=== PATIENT | female | born 1935 | race Caucasian/White ===

== ENCOUNTER 2020-07-21 04:16 | Day surgery (SDC) | payer OTHER, BC ==
[2020-07-20 11:02] VITALS: BMI 16.2
[~2020-07-21 04:16] MED LIST: TOBRAMYCIN/DEXAMETHASONE OPHTH. OINTMENT 1 TUBE TP ONE
[2020-07-21] MEDS ORDERED: CIPROFLOXACIN HCL 0.3% OPHTH 2.5ML BOTTLE ONE (07:01)
[2020-07-21] MEDS ORDERED: TROPICAMIDE 1% OPHTH SOLN 15 ML BOTTLE ONE (07:02)
[2020-07-21] MEDS ORDERED: TOBRAMYCIN/DEXAMETHASONE OPHTH. OINTMENT 1 TUBE ONE (07:14)
[2020-07-21] MEDS ORDERED: ACETAMINOPHEN 325 MG TABLET (FP) PO PRN (07:14)
[2020-07-21] MEDS ORDERED: LIDOCAINE HCL/PF 1% SDV 5ML VIAL ONE (07:14)
[2020-07-21] MEDS ORDERED: BSS (NA/CA/MG/K) BALANCED SALT SOLUTION OPHTH SOLN 15 ML BOTTLE ONE (07:14)
[2020-07-21] MEDS ORDERED: POVIDONE-IODINE 5% OPHTHALMIC PREP 30 ML SOLUTION ONE (07:14)
[2020-07-21] MEDS: KETOROLAC TROMETHAMINE 0.5% EYE DROP 1 DROP DROPS OP SCH ×2 (07:15→07:45)
[2020-07-21] MEDS ORDERED: CHONDROITIN SU A/HYALUR SOD 1 KIT ONE (07:15)
[2020-07-21] MEDS ORDERED: EPINEPHrine/PF 1 MG/1 ML (1:1,000) AMPULE ONE (07:15)
[2020-07-21] MEDS ORDERED: PHENYLEPHRINE 2.5% OPHTH SOLN 15 ML BOTTLE OP SCH (07:15)
[2020-07-21] MEDS: DICLOFENAC SODIUM 0.1% OPHTHALMIC 2.5ML BOTTLE ONE ×3 (07:15→07:45)
[2020-07-21] MEDS ORDERED: TETRACAINE 0.5% OPHTH SOLN 2 ML BOTTLE ONE (07:15)
[2020-07-21] MEDS: CIPROFLOXACIN HCL 0.3% OPHTH 2.5ML BOTTLE OP SCH ×3 (07:15→07:45)
[2020-07-21] MEDS: TROPICAMIDE 1% OPHTH SOLN 15 ML BOTTLE OP SCH ×2 (07:30→07:45)
[2020-07-21] MEDS ORDERED: MIDAZOLAM HCL 2 MG/2 ML SINGLE DOSE VIAL ONE (08:35)
[2020-07-21] MEDS ORDERED: TETRACAINE 0.5% OPHTH SOLN 2 ML BOTTLE TP ONE (08:37)
[2020-07-21] MEDS ORDERED: POVIDONE-IODINE 5% OPHTHALMIC PREP 30 ML SOLUTION OD ONE (08:39)
[2020-07-21] MEDS ORDERED: LIDOCAINE HCL 1% PRESERVATIVE FREE - 30ML VIAL IO ONE (08:47)
[2020-07-21] MEDS ORDERED: CHONDROITIN SU A/HYALUR SOD 1 KIT IO ONE (08:47)
[2020-07-21] MEDS ORDERED: BSS (NA/CA/MG/K) BALANCED SALT SOLUTION OPHTH SOLN 15 ML BOTTLE OD ONE (08:47)
[2020-07-21] MEDS ORDERED: EPINEPHrine/PF 1 MG/1 ML (1:1,000) AMPULE SQ ONE (08:51)
[2020-07-21] MEDS ORDERED: TOBRAMYCIN/DEXAMETHASONE OPHTH. OINTMENT 1 TUBE TP ONE (09:09)
[2020-07-21 09:58] VITALS: TEMP 97.8
[2020-07-21 11:27] VITALS: BP 136/70; PULSE 76
== END 2020-07-21 11:00 | disposition home or self-care (01) ==
LOC: JASU-SURG 04:16
PROVIDERS: ATTEND Ophthalmology
PROC: 08RJ3JZ Replacement of Right Lens with Synthetic Substitute, Percutaneous Approach (ICD-10-PCS; principal; 2020-07-21 08:30)
DX: H25.091 Other age-related incipient cataract, right eye (principal)

== ENCOUNTER 2020-07-28 04:33 | Day surgery (SDC) | payer OTHER, BC ==
[2020-07-26 11:49] VITALS: BMI 16.2
[2020-07-28] MEDS ORDERED: TROPICAMIDE 1% OPHTH SOLN 15 ML BOTTLE ONE (07:12)
[2020-07-28] MEDS ORDERED: CIPROFLOXACIN HCL 0.3% OPHTH 2.5ML BOTTLE ONE (07:12)
[2020-07-28] MEDS ORDERED: DICLOFENAC SODIUM 0.1% OPHTHALMIC 2.5ML BOTTLE ONE (07:12)
[2020-07-28] MEDS ORDERED: ACETAMINOPHEN 325 MG TABLET (FP) PO PRN ×2 (07:24→11:07)
[2020-07-28] MEDS ORDERED: LIDOCAINE HCL/PF 1% SDV 5ML VIAL ONE (07:26)
[2020-07-28] MEDS ORDERED: BSS (NA/CA/MG/K) BALANCED SALT SOLUTION OPHTH SOLN 15 ML BOTTLE ONE (07:26)
[2020-07-28] MEDS ORDERED: POVIDONE-IODINE 5% OPHTHALMIC PREP 30 ML SOLUTION ONE (07:26)
[2020-07-28] MEDS ORDERED: CHONDROITIN SU A/HYALUR SOD 1 KIT ONE (07:27)
[2020-07-28] MEDS ORDERED: CIPROFLOXACIN 0.3% EYE DROPS 5 ML BOTTLE OP ONE ×3 (07:30→07:45)
[2020-07-28] MEDS ORDERED: PHENYLEPHRINE 2.5% OPHTH SOLN 15 ML BOTTLE OP SCH (07:30)
[2020-07-28] MEDS ORDERED: CIPROFLOXACIN HCL 0.3% OPHTH 2.5ML BOTTLE OP SCH (07:30)
[2020-07-28] MEDS ORDERED: TROPICAMIDE 1% OPHTH SOLN 15 ML BOTTLE OP SCH (07:30)
[2020-07-28] MEDS: KETOROLAC TROMETHAMINE 0.5% EYE DROP 1 DROP DROPS OP SCH ×3 (07:30→07:40)
[2020-07-28] MEDS ORDERED: PHENYLEPHRINE 2.5% OPHTH SOLN 15 ML BOTTLE OP ONE ×3 (07:30→07:40)
[2020-07-28] MEDS ORDERED: TROPICAMIDE 1% OPHTH SOLN 15 ML BOTTLE OP ONE ×3 (07:30→07:40)
[2020-07-28] MEDS ORDERED: TOBRAMYCIN/DEXAMETHASONE OPHTH. OINTMENT 1 TUBE ONE (07:43)
[2020-07-28] MEDS ORDERED: MIDAZOLAM HCL 2 MG/2 ML SINGLE DOSE VIAL ONE (08:38)
[2020-07-28] MEDS ORDERED: TETRACAINE 0.5% OPHTH SOLN 2 ML BOTTLE TP ONE (08:39)
[2020-07-28] MEDS ORDERED: POVIDONE-IODINE 5% OPHTHALMIC PREP 30 ML SOLUTION OS ONE (08:40)
[2020-07-28] MEDS ORDERED: BSS (NA/CA/MG/K) BALANCED SALT SOLUTION OPHTH SOLN 15 ML BOTTLE OS ONE (08:45)
[2020-07-28] MEDS ORDERED: CHONDROITIN SU A/HYALUR SOD 1 KIT IO ONE (08:48)
[2020-07-28] MEDS ORDERED: LIDOCAINE HCL 1% PRESERVATIVE FREE - 30ML VIAL IO ONE (08:48)
[2020-07-28] MEDS ORDERED: EPINEPHrine/PF 1 MG/1 ML (1:1,000) AMPULE SQ ONE (08:58)
[2020-07-28] MEDS ORDERED: TOBRAMYCIN/DEXAMETHASONE OPHTH. OINTMENT 1 TUBE TP ONE (09:10)
[2020-07-28] MEDS ORDERED: ACETAMINOPHEN 325 MG TABLET (FP) ONE (09:42)
[2020-07-28] MEDS ORDERED: ACETAMINOPHEN 325 MG TABLET (FP) PO ONE (09:45)
[2020-07-28 10:26] VITALS: BP 123/72; PULSE 73; TEMP 97.4
[2020-07-28] MEDS ORDERED: ONDANSETRON 4 MG/2 ML VIAL IVPUSH PRN (11:07)
[2020-07-28] MEDS ORDERED: LACTATED RINGERS SOLUTION 1,000 ML IV SCH (11:15)
== END 2020-07-28 10:45 | disposition home or self-care (01) ==
LOC: JASU-SURG 04:33
PROVIDERS: ATTEND Ophthalmology
PROC: 08RK3JZ Replacement of Left Lens with Synthetic Substitute, Percutaneous Approach (ICD-10-PCS; principal; 2020-07-28 08:30)
DX: H25.12 Age-related nuclear cataract, left eye (principal)

== ENCOUNTER 2021-11-28 02:41 | Inpatient (IN) | payer OTHER, BC ==
[2021-11-28] MEDS ORDERED: ALBUTEROL SO4 2.5/IPRATROPIUM 0.5 INH SOL 3 ML VIAL.NEB. NEB ONE ×3 (02:45→16:20)
[2021-11-28] MEDS ORDERED: methylPREDNISolone NA SUCC 125 MG/2 ML VIAL ONE (02:45)
[2021-11-28] MEDS ORDERED: methylPREDNISolone NA SUCC 125 MG/2 ML VIAL IVPUSH ONE (03:20)
[2021-11-28 03:54] LABS: VENOUS BASE EXCESS 4.8 mmol/L (-2-2); VENOUS O2 SATURATION 59.1 % (70-80); VENOUS PH 7.284 (7.310-7.410)
[2021-11-28 04:07] LABS: ALBUMIN 3.3 g/dl (3.4-5.0); BLOOD UREA NITROGEN 18.3 mg/dL (7-18); CALCIUM 8.8 mg/dL (8.5-10.1)
[2021-11-28 04:08] LABS: BASO % 0.8 % (0-2.0); EOS % 2.6 % (0-4.5); HEMATOCRIT 33.9 % (32.4-45.2); HEMOGLOBIN 10.9 GM/dL (10.7-15.3); LYMPH % 10.8 % (8-40); MCHC 32.2 g/dl (32.0-36.0); MEAN CELL VOLUME 86.9 fl (80-96); MEAN PLT VOLUME 8.1 fl (7.5-11.1); MONO % 7.6 % (3.8-10.2); NEUT % 78.2 % (42.8-82.8); PLATELET COUNT 319 10^3/uL (134-434); WHITE BLOOD COUNT 5.6 K/mm3 (4.0-10.0)
[2021-11-28 04:10] LABS: CREATININE 1.1 mg/dL (0.55-1.3)
[2021-11-28 04:12] LABS: BILIRUBIN,TOTAL 0.3 mg/dL (0.2-1); TOT PROT 6.4 g/dl (6.4-8.2)
[2021-11-28 04:23] LABS: LACTIC ACID 2.1 mmol/L (0.4-2.0)
[2021-11-28] MEDS: ALBUTEROL SO4 2.5/IPRATROPIUM 0.5 INH SOL 3 ML VIAL.NEB. NEB SCH ×7 (04:30→23:12)
[2021-11-28] MEDS ORDERED: SODIUM CHLORIDE 0.9% 500 ML INFUS.BAG IV ONE (04:32)
[2021-11-28 04:34] LABS: EPI CELLS 15 /uL (0-25.1); HYALINE CASTS 1 /uL (0-3.1); URINE APPEARANCE CLOUDY; URINE BACTERIA 3262 /uL (0-1359); URINE BILIRUBIN NEGATIVE (NEGATIVE); URINE COLOR YELLOW; URINE GLUCOSE (UA) NEGATIVE (NEGATIVE); URINE KETONE NEGATIVE (NEGATIVE); URINE LEUK ESTERASE TRACE (NEGATIVE); URINE NITRITE NEGATIVE (NEGATIVE); URINE PROTEIN TRACE (NEGATIVE); URINE RBC 5 /uL (0-23.9); URINE WBC 78 /uL (0-25.8)
[2021-11-28] MEDS ORDERED: PIPERACILLIN/TAZOB 4.5 GM 4.5 GM in DEXTROSE 5%-WATER 100 ML IVPB ONE (04:35)
[2021-11-28] MEDS ORDERED: VANCOMYCIN 1 GM in D5W (PRE-DOCKED) 1,000 MG/250 ML IVPB ONE (04:35)
[2021-11-28] MEDS ORDERED: PIPERACILLIN/TAZOB 4.5 GM 4.5 GM/100 ML BAG IVPB ONE (04:51)
[2021-11-28] MEDS ORDERED: VANCOMYCIN 1 GRAM (PRE-DOCKED) 1,000 MG/250 ML BAG IVPB ONE (06:32)
[2021-11-28] MEDS ORDERED: SIMETHICONE 80 MG TAB.CHEW (FP) PO ONE ×2 (07:43→21:32)
[2021-11-28] MEDS ORDERED: FAMOTIDINE 10 MG TABLET ONE (08:33)
[2021-11-28] MEDS ORDERED: clonazePAM 0.25 MG ODT TABLETS SL PRN (08:39)
[2021-11-28] MEDS: FAMOTIDINE 10 MG TABLET PO SCH (09:00)
[2021-11-28] MEDS ORDERED: clonazePAM 0.25 MG ODT TABLETS SL ONE ×2 (09:29→22:36)
[2021-11-28] MEDS ORDERED: ENOXAPARIN NA (PORCINE) 30 MG/0.3 ML DISP.SYRIN SQ ONE (09:29)
[2021-11-28] MEDS ORDERED: amLODIPine BESYLATE 5 MG TABLET (FP) ONE (09:29)
[2021-11-28] MEDS ORDERED: LEVOTHYROXINE NA 50 MCG TABLET (FP) ONE (09:29)
[2021-11-28] MEDS ORDERED: methylPREDNISolone NA SUCC 40 MG/1 ML VIAL ONE ×2 (09:30→18:10)
[2021-11-28] MEDS: ENOXAPARIN NA (PORCINE) 30 MG/0.3 ML DISP.SYRIN SQ SCH (09:44)
[2021-11-28] MEDS: amLODIPine BESYLATE 5 MG TABLET (FP) PO SCH (09:44)
[2021-11-28] MEDS: methylPREDNISolone NA SUCC 40 MG/1 ML VIAL IVPUSH SCH ×2 (09:44→18:13)
[2021-11-28] MEDS: LEVOTHYROXINE NA 50 MCG TABLET (FP) PO SCH (09:45)
[2021-11-28] MEDS ORDERED: FAMOTIDINE 20 MG/50 ML IVPB 20 MG/50 ML MG IVPB SCH (10:00)
[2021-11-28] MEDS ORDERED: SODIUM CHLORIDE 1,000 ML IV SCH (10:00)
[2021-11-28] MEDS ORDERED: PIPERACILLIN/TAZOB 3.375 GM 3.375 GM in DEXTROSE 5%-WATER - 50 ML IVPB SCH (10:00)
[2021-11-28] MEDS ORDERED: ENOXAPARIN NA (PORCINE) 40 MG/0.4 ML DISP.SYRIN SQ SCH (10:00)
[2021-11-28] MEDS: BUDESONIDE/FORMETEROL FUMARATE 80/4.5 mcg INHALER IH SCH ×2 (11:52→21:50)
[2021-11-28] MEDS ORDERED: AZTREONAM 2 GM VIAL (RESTRICTED TO ID) ONE (11:53)
[2021-11-28] MEDS ORDERED: AZTREONAM 2 GM in DEXTROSE 5%-WATER 100 ML IVPB ONE (12:00)
[2021-11-28 12:58] LABS: LACTIC ACID 2.7 mmol/L (0.4-2.0)
[2021-11-28] MEDS ORDERED: ACETAMINOPHEN 1000 MG/100 ML BAG IVPB PRN ×2 (15:01→16:48)
[2021-11-28] MEDS: SODIUM CHLORIDE 1,000 ML IV SCH (23:19)
[2021-11-29] MEDS: methylPREDNISolone NA SUCC 40 MG/1 ML VIAL IVPUSH SCH ×3 (02:15→17:29)
[2021-11-29] MEDS: ALBUTEROL SO4 2.5/IPRATROPIUM 0.5 INH SOL 3 ML VIAL.NEB. NEB SCH ×6 (04:45→23:14)
[2021-11-29] MEDS: LEVOTHYROXINE NA 50 MCG TABLET (FP) PO SCH (06:09)
[2021-11-29 09:16] LABS: ALBUMIN 2.9 g/dl (3.4-5.0); BLOOD UREA NITROGEN 19.2 mg/dL (7-18); CALCIUM 8.5 mg/dL (8.5-10.1)
[2021-11-29 09:19] LABS: CREATININE 0.9 mg/dL (0.55-1.3); PHOSPHOROUS 3.8 mg/dL (2.5-4.9)
[2021-11-29 09:20] LABS: BILIRUBIN,TOTAL 0.3 mg/dL (0.2-1)
[2021-11-29 09:21] LABS: TOT PROT 5.5 g/dl (6.4-8.2)
[2021-11-29] MEDS: SODIUM CHLORIDE 1,000 ML IV SCH ×2 (09:57→15:44)
[2021-11-29 10:02] LABS: HEMATOCRIT 32.1 % (32.4-45.2); HEMOGLOBIN 10.1 GM/dL (10.7-15.3); MCHC 31.6 g/dl (32.0-36.0); MEAN CELL VOLUME 88.7 fl (80-96); MEAN PLT VOLUME 8.4 fl (7.5-11.1); PLATELET COUNT 281 10^3/uL (134-434); RBC 3.61 M/mm3 (3.60-5.2); WHITE BLOOD COUNT 4.9 K/mm3 (4.0-10.0)
[2021-11-29] MEDS: amLODIPine BESYLATE 5 MG TABLET (FP) PO SCH (10:12)
[2021-11-29] MEDS: BUDESONIDE/FORMETEROL FUMARATE 80/4.5 mcg INHALER IH SCH ×2 (10:13→21:09)
[2021-11-29] MEDS: ENOXAPARIN NA (PORCINE) 30 MG/0.3 ML DISP.SYRIN SQ SCH (10:13)
[2021-11-29] MEDS: FAMOTIDINE 10 MG TABLET PO SCH (10:13)
[2021-11-29] MEDS ORDERED: clonazePAM 0.25 MG ODT TABLETS SL ONE (19:46)
[2021-11-29] MEDS: ACETAMINOPHEN 325 MG TABLET (FP) PO PRN (21:08)
[2021-11-30] MEDS: methylPREDNISolone NA SUCC 40 MG/1 ML VIAL IVPUSH SCH ×3 (02:17→18:30)
[2021-11-30] MEDS: ALBUTEROL SO4 2.5/IPRATROPIUM 0.5 INH SOL 3 ML VIAL.NEB. NEB SCH ×5 (04:20→20:36)
[2021-11-30] MEDS: LEVOTHYROXINE NA 50 MCG TABLET (FP) PO SCH (06:08)
[2021-11-30 08:55] LABS: HEMATOCRIT 33.9 % (32.4-45.2); HEMOGLOBIN 10.8 GM/dL (10.7-15.3); MCH 27.9 pg (25.7-33.7); MCHC 31.8 g/dl (32.0-36.0); MEAN CELL VOLUME 87.8 fl (80-96); MEAN PLT VOLUME 8.4 fl (7.5-11.1); PLATELET COUNT 289 10^3/uL (134-434); RBC 3.86 M/mm3 (3.60-5.2); RDW 18.2 % (11.6-15.6); WHITE BLOOD COUNT 7.1 K/mm3 (4.0-10.0)
[2021-11-30 09:08] LABS: CALCIUM 8.7 mg/dL (8.5-10.1)
[2021-11-30 09:09] LABS: BLOOD UREA NITROGEN 21.2 mg/dL (7-18)
[2021-11-30 09:12] LABS: CREATININE 0.9 mg/dL (0.55-1.3)
[2021-11-30] MEDS: BUDESONIDE/FORMETEROL FUMARATE 80/4.5 mcg INHALER IH SCH ×2 (10:48→22:01)
[2021-11-30] MEDS: ENOXAPARIN NA (PORCINE) 30 MG/0.3 ML DISP.SYRIN SQ SCH (10:48)
[2021-11-30] MEDS: amLODIPine BESYLATE 5 MG TABLET (FP) PO SCH (10:48)
[2021-11-30] MEDS: FAMOTIDINE 10 MG TABLET PO SCH (10:48)
[2021-11-30 14:44] LABS: OVALOCYTE 2+; TEAR DROP CELLS 1+
[2021-11-30] MEDS ORDERED: VANCOMYCIN 750 MG in DEXTROSE 5%-WATER - 150 ML IVPB SCH (14:45)
[2021-11-30] MEDS: ACETAMINOPHEN 325 MG TABLET (FP) PO PRN (16:27)
[2021-12-01] MEDS: ALBUTEROL SO4 2.5/IPRATROPIUM 0.5 INH SOL 3 ML VIAL.NEB. NEB SCH ×6 (00:35→20:46)
[2021-12-01] MEDS: methylPREDNISolone NA SUCC 40 MG/1 ML VIAL IVPUSH SCH ×3 (02:29→19:12)
[2021-12-01] MEDS: LEVOTHYROXINE NA 50 MCG TABLET (FP) PO SCH (06:12)
[2021-12-01] MEDS: ENOXAPARIN NA (PORCINE) 30 MG/0.3 ML DISP.SYRIN SQ SCH (10:13)
[2021-12-01] MEDS: FAMOTIDINE 10 MG TABLET PO SCH (10:13)
[2021-12-01] MEDS: amLODIPine BESYLATE 5 MG TABLET (FP) PO SCH (10:13)
[2021-12-01] MEDS: BUDESONIDE/FORMETEROL FUMARATE 80/4.5 mcg INHALER IH SCH ×3 (10:15→22:30)
[2021-12-01] MEDS: VANCOMYCIN/WATER FOR INJ (PEG) 750 MG/150 ML BAG IVPB SCH (14:43)
[2021-12-02] MEDS: ALBUTEROL SO4 2.5/IPRATROPIUM 0.5 INH SOL 3 ML VIAL.NEB. NEB SCH ×6 (01:45→20:02)
[2021-12-02] MEDS: methylPREDNISolone NA SUCC 40 MG/1 ML VIAL IVPUSH SCH ×3 (01:47→21:08)
[2021-12-02] MEDS: LEVOTHYROXINE NA 50 MCG TABLET (FP) PO SCH (06:22)
[2021-12-02] MEDS: FAMOTIDINE 10 MG TABLET PO SCH (09:35)
[2021-12-02] MEDS: BUDESONIDE/FORMETEROL FUMARATE 80/4.5 mcg INHALER IH SCH ×2 (09:36→21:08)
[2021-12-02] MEDS: ENOXAPARIN NA (PORCINE) 30 MG/0.3 ML DISP.SYRIN SQ SCH (09:36)
[2021-12-02] MEDS: amLODIPine BESYLATE 5 MG TABLET (FP) PO SCH (09:36)
[2021-12-02 10:12] LABS: HEMATOCRIT 36.2 % (32.4-45.2); HEMOGLOBIN 11.5 GM/dL (10.7-15.3); MCH 28.1 pg (25.7-33.7); MCHC 31.9 g/dl (32.0-36.0); MEAN CELL VOLUME 88.3 fl (80-96); MEAN PLT VOLUME 8.6 fl (7.5-11.1); PLATELET COUNT 298 10^3/uL (134-434); RDW 17.5 % (11.6-15.6); WHITE BLOOD COUNT 7.3 K/mm3 (4.0-10.0)
[2021-12-02 10:34] LABS: BLOOD UREA NITROGEN 27.5 mg/dL (7-18); CALCIUM 8.7 mg/dL (8.5-10.1); CREATININE 0.8 mg/dL (0.55-1.3)
[2021-12-02] MEDS: SIMETHICONE 80 MG TAB.CHEW (FP) PO PRN (11:54)
[2021-12-02] MEDS: clonazePAM 0.5 MG TABLET PO PRN (11:54)
[2021-12-02] MEDS ORDERED: methylPREDNISolone NA SUCC 40 MG/1 ML VIAL IVPUSH SCH (12:45)
[2021-12-02] MEDS: VANCOMYCIN/WATER FOR INJ (PEG) 750 MG/150 ML BAG IVPB SCH (15:51)
[2021-12-03] MEDS: ALBUTEROL SO4 2.5/IPRATROPIUM 0.5 INH SOL 3 ML VIAL.NEB. NEB SCH ×2 (00:08→04:36)
[2021-12-03] MEDS: ACETAMINOPHEN 325 MG TABLET (FP) PO PRN (06:07)
[2021-12-03] MEDS: LEVOTHYROXINE NA 50 MCG TABLET (FP) PO SCH (06:07)
[2021-12-03] MEDS: SIMETHICONE 80 MG TAB.CHEW (FP) PO PRN ×2 (10:59→22:08)
[2021-12-03] MEDS: amLODIPine BESYLATE 5 MG TABLET (FP) PO SCH (10:59)
[2021-12-03] MEDS: ENOXAPARIN NA (PORCINE) 30 MG/0.3 ML DISP.SYRIN SQ SCH (10:59)
[2021-12-03] MEDS: BUDESONIDE/FORMETEROL FUMARATE 80/4.5 mcg INHALER IH SCH ×2 (10:59→22:08)
[2021-12-03] MEDS: clonazePAM 0.5 MG TABLET PO PRN (10:59)
[2021-12-03] MEDS: methylPREDNISolone NA SUCC 40 MG/1 ML VIAL IVPUSH SCH ×2 (10:59→22:08)
[2021-12-03] MEDS: FAMOTIDINE 10 MG TABLET PO SCH (10:59)
[2021-12-03] MEDS: ALBUTEROL SO4 2.5/IPRATROPIUM 0.5 INH SOL 3 ML VIAL.NEB. NEB PRN ×2 (14:08→20:28)
[2021-12-03] MEDS: VANCOMYCIN/WATER FOR INJ (PEG) 750 MG/150 ML BAG IVPB SCH (15:48)
[2021-12-04] MEDS: LEVOTHYROXINE NA 50 MCG TABLET (FP) PO SCH (06:17)
[2021-12-04] MEDS: ALBUTEROL SO4 2.5/IPRATROPIUM 0.5 INH SOL 3 ML VIAL.NEB. NEB PRN (07:30)
[2021-12-04] MEDS: BUDESONIDE/FORMETEROL FUMARATE 80/4.5 mcg INHALER IH SCH ×2 (09:19→21:10)
[2021-12-04] MEDS: ENOXAPARIN NA (PORCINE) 30 MG/0.3 ML DISP.SYRIN SQ SCH (09:19)
[2021-12-04] MEDS: FAMOTIDINE 10 MG TABLET PO SCH ×2 (09:19→21:11)
[2021-12-04] MEDS: amLODIPine BESYLATE 5 MG TABLET (FP) PO SCH (09:19)
[2021-12-04] MEDS: methylPREDNISolone NA SUCC 40 MG/1 ML VIAL IVPUSH SCH (09:21)
[2021-12-04 12:07] LABS: HEMATOCRIT 37.1 % (32.4-45.2); HEMOGLOBIN 11.8 GM/dL (10.7-15.3); MCH 28.1 pg (25.7-33.7); MCHC 31.9 g/dl (32.0-36.0); MEAN CELL VOLUME 88.3 fl (80-96); MEAN PLT VOLUME 8.6 fl (7.5-11.1); PLATELET COUNT 278 10^3/uL (134-434); RDW 17.6 % (11.6-15.6); WHITE BLOOD COUNT 6.7 K/mm3 (4.0-10.0)
[2021-12-04] MEDS: ALBUTEROL SO4 2.5/IPRATROPIUM 0.5 INH SOL 3 ML VIAL.NEB. NEB SCH ×3 (12:17→19:17)
[2021-12-04 12:29] LABS: ALBUMIN 3.1 g/dl (3.4-5.0); CALCIUM 8.6 mg/dL (8.5-10.1)
[2021-12-04 12:30] LABS: BLOOD UREA NITROGEN 29.1 mg/dL (7-18); MAGNESIUM 2.2 mg/dL (1.8-2.4)
[2021-12-04 12:32] LABS: CREATININE 0.7 mg/dL (0.55-1.3)
[2021-12-04 12:34] LABS: BILIRUBIN,TOTAL 0.3 mg/dL (0.2-1); TOT PROT 5.9 g/dl (6.4-8.2)
[2021-12-04] MEDS: clonazePAM 0.5 MG TABLET PO PRN (12:37)
[2021-12-04 13:04] LABS: ANISOCYTOSIS 1+; MACROCYTOSIS 0
[2021-12-04 14:36] VITALS: BMI 16.2
[2021-12-04] MEDS: VANCOMYCIN/WATER FOR INJ (PEG) 750 MG/150 ML BAG IVPB SCH ×2 (16:02→16:37)
[2021-12-05] MEDS: LEVOTHYROXINE NA 50 MCG TABLET (FP) PO SCH (06:09)
[2021-12-05] MEDS: ALBUTEROL SO4 2.5/IPRATROPIUM 0.5 INH SOL 3 ML VIAL.NEB. NEB SCH ×3 (08:27→15:55)
[2021-12-05 09:46] LABS: BASO % 0.1 % (0-2.0); EOS % 0.2 % (0-4.5); HEMATOCRIT 38.1 % (32.4-45.2); HEMOGLOBIN 11.9 GM/dL (10.7-15.3); LYMPH % 6.4 % (8-40); MCH 27.6 pg (25.7-33.7); MCHC 31.3 g/dl (32.0-36.0); MEAN CELL VOLUME 88.2 fl (80-96); MEAN PLT VOLUME 8.7 fl (7.5-11.1); MONO % 5.5 % (3.8-10.2); NEUT % 87.8 % (42.8-82.8); PLATELET COUNT 256 10^3/uL (134-434); RBC 4.32 M/mm3 (3.60-5.2); RDW 17.4 % (11.6-15.6); WHITE BLOOD COUNT 10.1 K/mm3 (4.0-10.0)
[2021-12-05 10:00] LABS: ALBUMIN 2.8 g/dl (3.4-5.0); BLOOD UREA NITROGEN 23.7 mg/dL (7-18); CALCIUM 8.6 mg/dL (8.5-10.1); MAGNESIUM 2.1 mg/dL (1.8-2.4)
[2021-12-05] MEDS ORDERED: MULTIVITAMINS (DAILY MVI) TABLET (FP) PO SCH (10:00)
[2021-12-05] MEDS ORDERED: ASCORBIC ACID 500 MG TABLET (FP) PO SCH (10:00)
[2021-12-05 10:03] LABS: CREATININE 0.6 mg/dL (0.55-1.3)
[2021-12-05 10:04] LABS: BILIRUBIN,TOTAL 0.6 mg/dL (0.2-1)
[2021-12-05 10:05] LABS: TOT PROT 5.6 g/dl (6.4-8.2)
[2021-12-05] MEDS: clonazePAM 0.5 MG TABLET PO PRN (10:07)
[2021-12-05] MEDS: FAMOTIDINE 10 MG TABLET PO SCH (10:17)
[2021-12-05] MEDS: BUDESONIDE/FORMETEROL FUMARATE 80/4.5 mcg INHALER IH SCH (10:18)
[2021-12-05] MEDS: amLODIPine BESYLATE 5 MG TABLET (FP) PO SCH (10:18)
[2021-12-05] MEDS ORDERED: SODIUM ZIRCONIUM CYCLOSILICATE (LOKELMA) 5 GM PACKET PO ONE (10:30)
[2021-12-05] MEDS: VANCOMYCIN/WATER FOR INJ (PEG) 750 MG/150 ML BAG IVPB SCH (15:12)
[2021-12-05] MEDS: methylPREDNISolone NA SUCC 40 MG/1 ML VIAL IVPUSH SCH (16:24)
[2021-12-05] MEDS: ENOXAPARIN NA (PORCINE) 30 MG/0.3 ML DISP.SYRIN SQ SCH (16:24)
[2021-12-05 20:01] VITALS: BP 154/56; PULSE 83; TEMP 97.4
[2021-12-06] MEDS ORDERED: predniSONE 10 MG TABLET (UD) PO SCH (10:00)
[2021-12-06] MEDS ORDERED: predniSONE 20 MG TABLET (UD) PO SCH (10:00)
[2021-12-09] MEDS ORDERED: predniSONE 10 MG TABLET (UD) PO SCH (10:00)
[2021-12-12] MEDS ORDERED: predniSONE 20 MG TABLET (UD) PO SCH (10:00)
[2021-12-15] MEDS ORDERED: predniSONE 10 MG TABLET (UD) PO SCH (10:00)
== END 2021-12-05 17:53 | DRG 871 ==
LOC: JER 02:41 → JERBED 04:35 → J5S 18:19 → JICU 11-29 12:05 → J5S 11-29 12:16
PROVIDERS: ADMIT Internal Medicine; ATTEND Nurse Practitioner Acute Care
DX: A41.9 Sepsis, unspecified organism (principal); J18.9 Pneumonia, unspecified organism; J96.22 Acute and chronic respiratory failure with hypercapnia; J96.21 Acute and chronic respiratory failure with hypoxia; E87.2 Acidosis; E44.0 Moderate protein-calorie malnutrition; Z68.1 Body mass index [BMI] 19.9 or less, adult; R64 Cachexia; N39.0 Urinary tract infection, site not specified; J44.1 Chronic obstructive pulmonary disease with (acute) exacerbation; J44.0 Chronic obstructive pulmonary disease with (acute) lower respiratory infection; J20.9 Acute bronchitis, unspecified; Z99.81 Dependence on supplemental oxygen; E03.9 Hypothyroidism, unspecified; F41.9 Anxiety disorder, unspecified; K21.9 Gastro-esophageal reflux disease without esophagitis
CPT/HCPCS: 0241U-QW; 36415; 71045-TC-FY; 74230-TC-FY; 80048; 80053; 81003; 82803; 83605; 83735; 84100; 84443; 84484; 85025; 87040; 87070; 87086; 87186; 87205; 87899; 92611-GN; 93005; 93010; 94640; 97116-GP; 97161-GP; 99285-25; C9803-CS; G0480; U0003; U0005